=== PATIENT | female | born 1965 | race Caucasian/White ===

== ENCOUNTER 2017-01-29 07:42 | Day surgery (SDC) | payer BC, OTHER ==
[~2017-01-29] VITALS: Ht 167.6 cm; Wt 111.1 kg
[2017-01-29 08:20] VITALS: BP 104/70; PULSE 81; TEMP 97.4
[2017-01-29] MEDS ORDERED: ELIQUIS 5MG PO (08:32)
[2017-01-29] MEDS ORDERED: ZANTAC 150MG T150 MG PO (08:32)
[2017-01-29] MEDS ORDERED: PHENERGAN 25 TA25 MG PO (08:33)
[2017-01-29] MEDS ORDERED: CYMBALTA 60MG60 MG PO (08:33)
[2017-01-29] MEDS ORDERED: ULTRAM 50MG TAB50 MG PO (08:34)
[2017-01-29] MEDS ORDERED: FLEXERIL5 MG PO (08:35)
[2017-01-29 10:10] VITALS: BP 96/63; PULSE 74
[2017-01-29 10:25] VITALS: BP 103/60; PULSE 81
[2017-01-29] MEDS ORDERED: FIBER0.52 GM (10:25)
[2017-01-29 10:40] VITALS: BP 95/66; PULSE 64
[2017-01-29 10:55] VITALS: BP 96/63; PULSE 73
[2017-01-29 12:57] VITALS: BP 102/68; PULSE 85
== END 2017-01-29 11:15 | disposition home or self-care (01) ==
LOC: SDCO 07:42
DX: K64.4 Residual hemorrhoidal skin tags (principal); K29.30 Chronic superficial gastritis without bleeding; K59.09 Other constipation; F41.9 Anxiety disorder, unspecified; Z79.01 Long term (current) use of anticoagulants
CPT/HCPCS: OP; J2250; J2405; J3010; J7030

== ENCOUNTER → 2017-02-26 | Outpatient (CLI) | payer BC, OTHER ==
[~2017-02-26] MED LIST: CYMBALTA 60MG60 MG PO; ELIQUIS 5MG PO; FIBER0.52 GM; FLEXERIL5 MG PO; PHENERGAN 25 TA25 MG PO; ULTRAM 50MG TAB50 MG PO; ZANTAC 150MG T150 MG PO
== END ==
LOC: MHCPAIN 08:53
DX: G89.29 Other chronic pain (principal); M47.817 Spondylosis without myelopathy or radiculopathy, lumbosacral region; M96.1 Postlaminectomy syndrome, not elsewhere classified; M50.10 Cervical disc disorder with radiculopathy, unspecified cervical region; M25.572 Pain in left ankle and joints of left foot; M79.2 Neuralgia and neuritis, unspecified; Z87.891 Personal history of nicotine dependence; Z86.718 Personal history of other venous thrombosis and embolism; Z79.01 Long term (current) use of anticoagulants
CPT/HCPCS: G0463

== ENCOUNTER → 2018-07-15 | Outpatient (CLI) | payer BC | LOC: COL.RAD 10:13 | DX: M25.551 Pain in right hip (principal); R10.2 Pelvic and perineal pain | CPT/HCPCS: G0260; J3301 ==

== ENCOUNTER → 2018-09-10 | Outpatient (CLI) | payer BC | LOC: COL.VAS 09:08 | DX: Z13.6 Encounter for screening for cardiovascular disorders (principal); M79.89 Other specified soft tissue disorders ==